=== PATIENT | male | born 1975 | race African-American/Black ===

== ENCOUNTER 2018-11-10 13:31 | Emergency (ER) | payer MEDICAID ==
[~2018-11-10 13:31] MED LIST: BACTRIM; CEPH-569; HYDR-519
[2018-11-10] MEDS ORDERED: IBUPROFEN 600MG TABLET PO ONE (15:15)
[2018-11-10 16:00] VITALS: BP 115/68
== END 2018-11-10 16:08 | disposition home or self-care (01) ==
LOC: ER 14:16
DX: S86.811A Strain of other muscle(s) and tendon(s) at lower leg level, right leg, initial encounter (principal); W10.8XXA Fall (on) (from) other stairs and steps, initial encounter; Y93.89 Activity, other specified; Y92.89 Other specified places as the place of occurrence of the external cause
CPT/HCPCS: 99283; L1830

== ENCOUNTER 2024-06-13 11:02 | Emergency (ER) | payer MEDICAID, OTHER ==
[~2024-06-13] VITALS: Ht 165.1 cm; Wt 77.0 kg
[2024-06-13 11:07] VITALS: O2SAT 98
[2024-06-13] MEDS: ACETAMINOPHEN 325MG TABLET PO ONE (11:42)
[2024-06-13 12:09] VITALS: BP 140/84; PULSE 87; RESP 16; TEMP 36.72516; O2SAT 98
== END 2024-06-13 12:39 | disposition home or self-care (01) ==
LOC: ER 11:02
DX: S43.402A Unspecified sprain of left shoulder joint, initial encounter (principal); F12.90 Cannabis use, unspecified, uncomplicated; Z65.3 Problems related to other legal circumstances; X58.XXXA Exposure to other specified factors, initial encounter; Y93.89 Activity, other specified; Y92.89 Other specified places as the place of occurrence of the external cause; Y99.8 Other external cause status
CPT/HCPCS: 73030; 99283